=== PATIENT | male | born 1995 | race Caucasian/White ===

== ENCOUNTER 2017-06-08 12:32 | Emergency (ER) | payer BC ==
[2017-06-08 13:04] VITALS: TEMP 97.7; BMI 22.8
--- NOTE | 2017-06-08 13:32 | PDOC ---
History of Present Illness - General Chief Complaint: Overdose Stated Complaint: OVER DOSE Time Seen by Provider: 06/08/17 13:32 History Source: Patient, Law Enforcement Exam Limitations: No Limitations - History of Present Illness Initial Comments: 06/08/17 14:05 22-year-old male with history of heroin abuse, has had detox/rehabilitation in the past now with IV heroin use every couple of weeks presents brought in by law enforcement after he was found unresponsive and was awoken with Narcan. Patient admits to injecting heroin from a new source today, last recalls getting out of the car with his friends, subsequently awaking with Narcan. He has no complaints whatsoever at this time, he denies any acute depression or suicidal ideation or homicidal ideation, denies any hallucinations. He denies any injuries or pain, denies any cardiopulmonary symptoms at baseline, denies history of recurring syncope. He has never ended up in an emergency room after heroin use or required Narcan, he attributes this episode to the new supplier. Last detox was over one year ago in his home town in [place], where his support system is. He is currently living in [place]. Past History - Past Medical History Home Medications: Ambulatory Orders NK [No Known Home Medication] 06/08/17 Psychiatric Problems: Yes (drug abuse) - Suicide/Smoking/Psychosocial Hx Smoking History: Never smoked Information on smoking cessation initiated: No Hx Alcohol Use: Yes ("social") Drug/Substance Use Hx: Yes (Heroin) Review of Systems - Review of Systems Constitutional: No: Chills, Fever Respiratory: No: Cough, Shortness of Breath, Stridor Cardiac (ROS): Yes: See HPI. No: Chest Pain, Lightheadedness ABD/GI: No: Diarrhea, Vomiting Musculoskeletal: No: Back Pain, Joint Pain, Muscle Pain Neurological: No: Headache, Weakness, Dizziness All Other Systems: Reviewed and Negative *Physical Exam - Vital Signs Last Vital Signs Temp Pulse Resp BP Pulse Ox 97.7 F 86 20 146/88 97 06/08/17 12:58 06/08/17 12:58 06/08/17 12:58 06/08/17 12:58 06/08/17 12:58 - Physical Exam Comments: 06/08/17 14:07 Vital signs normal. General: Patient is alert and in no acute distress. Speech is clear and appropriate. Ambulating throughout the ED, drinking water, feels well. YPD at bedside. Head: Atraumatic and nontender. HEENT: Pupils are equal round and reactive to light, extraocular movements are intact. The oropharynx is clear. Neck: The trachea is midline, there is no stridor. There is no midline cervical spine tenderness, full range of motion of neck. Chest: Nontender, no ecchymosis or abrasions. Heart: S1-S2, regular rate and rhythm. No murmurs. Lungs: Clear to auscultation bilaterally. Symmetric chest rise. Abdomen: Soft/nontender/nondistended. Bowel sounds are normal. There is no abdominal or flank ecchymosis. Back/Pelvis: There is no midline spine tenderness or step-off. Pelvis is stable and nontender. Extremities: There is no extremity deformity or joint swelling. No focal bony tenderness throughout. 2+ distal pulses throughout. Neuro: Alert and oriented x3. Cranial nerves II through XII are intact. 5 out of 5 motor strength x4 extremities. [id number] is intact. No pronator drift. Gait is stable. Skin: Scattered puncture so to the extremities of varying ages. No cellulitis. No abrasions/hematomas/lacerations. Psych: Affect is appropriate. Medical Decision Making - Medical Decision Making 06/08/17 14:08 Healthy 22-year-old male with heroin overdose, resuscitated with Narcan. Denies any intentions of hurting himself or others, denies any hallucinations or acute psychiatric issues. He has successfully had detox in the past but is refusing at this time. He has no respiratory distress or signs of trauma. He was offered detox/rehab but refused. No acute psych issues. Refusing any workup of labs/chest x-ray/EKG States his plan is to go back to his family network in [place] Understands return criteria *DC/Admit/Observation/Transfer Diagnosis at time of Disposition: Accidental overdose of heroin Qualifiers: Encounter type: initial encounter Qualified Code(s): T40.1X1A - Poisoning by heroin, accidental (unintentional), initial encounter - Discharge Dispostion Disposition: HOME Condition at time of disposition: Improved - Referrals Referrals: Dionte Cho MD [Staff Physician] - - Patient Instructions Printed Discharge Instructions: DI for Drug Overdose in Adults, Chemical Dependency (Narcotic) (Alternative Therapy) Additional Instructions: Activity as tolerated. Stay hydrated. You required revival today with Narcan because you were unconscious. This is incredibly dangerous and life-threatening. We encourage you to seek assistance with an water resource specialist. Continue your medications as previously prescribed by your physician. You should follow up with your primary doctors and addiction network as soon as possible regarding today's emergency department visit. Return to the emergency department for any new or concerning symptoms, particularly pain, difficulty breathing, fever/chills, thoughts of hurting yourself or others.
[2017-06-08 14:20] VITALS: BP 138/82; PULSE 80
== END 2017-06-08 14:20 | disposition home or self-care (01) ==
LOC: JER 12:32
DX: T40.1X1A Poisoning by heroin, accidental (unintentional), initial encounter (principal); F11.10 Opioid abuse, uncomplicated; Y92.89 Other specified places as the place of occurrence of the external cause
CPT/HCPCS: 71010-TC; 99282-25